=== PATIENT | male | born 1935 | race Caucasian/White ===

== ENCOUNTER 2021-04-05 17:02 | Inpatient (IN) ==
[2021-04-05] MEDS ORDERED: Levalbuterol 1 PUFF INHALER IH PRN (18:29)
[2021-04-05] MEDS: RIOCIGUAT PO SCH (20:44)
[2021-04-05] MEDS: predniSONE 5 MG TABLET PO SCH (20:44)
[2021-04-06 08:25] LABS: Basophils # 0.1 K/mcL (0.0-0.2); Basophils % 0.6 %; Eosinophils % 0.2 %; Hematocrit 32.3 % (37.5-50.1); Hemoglobin 9.8 g/dL (12.9-16.9); Immature Granulocytes % 2.9 % (0-4); Lymphocytes # 1.2 K/mcL (0.6-4.6); Lymphocytes % 7.7 %; Mean Corpuscular HGB Conc 30.3 g/dL (31.6-35.5); Mean Corpuscular Hemoglobin 25.9 pg (28.0-33.3); Mean Corpuscular Volume 85.4 fL (83.0-100.0); Mean Platelet Volume 10.3 fL (9.4-12.4); Monocytes # 1.2 K/mcL (0.0-1.3); Monocytes % 7.7 %; Neutrophils # 12.5 K/mcL (1.6-8.9); Platelet Count 575 K/mcL (140-400); Red Blood Count 3.78 M/mcL (4.19-5.50); Red Cell Distribution Width 15.5 % (11.5-14.5); Segmented Neutrophils % 80.9 %; White Blood Count 15.4 K/mcL (4.3-11.1)
[2021-04-06 08:27] LABS: INR 1.1; Prothrombin Time 12.7 Seconds (9.4-12.1)
[2021-04-06 08:38] LABS: eGFR For African Americans > 60 (> 60); eGFR For Non-African Americans > 60 (> 60)
[2021-04-06] MEDS: Tiotropium 10 INH DOSE IH SCH (09:36)
[2021-04-06] MEDS: Metoprolol XL (24 HR) Succ 25 MG TAB.ER.24H PO SCH (10:03)
[2021-04-06] MEDS: Famotidine 20 MG TABLET PO SCH (10:03)
[2021-04-06] MEDS: Loratadine 10 MG TABLET PO SCH (10:03)
[2021-04-06] MEDS: RIOCIGUAT PO SCH ×3 (10:04→21:04)
[2021-04-06] MEDS: Cholecalciferol (D-3) 1,000 UNIT (25MCG) TABLET PO SCH (10:04)
[2021-04-06] MEDS: predniSONE 5 MG TABLET PO SCH ×3 (10:04→21:04)
[2021-04-06] MEDS: amLODIPine 5 MG TABLET PO SCH (10:04)
[2021-04-07] MEDS: Metoprolol XL (24 HR) Succ 25 MG TAB.ER.24H PO SCH (09:33)
[2021-04-07] MEDS: predniSONE 5 MG TABLET PO SCH ×3 (09:34→19:48)
[2021-04-07] MEDS: Cholecalciferol (D-3) 1,000 UNIT (25MCG) TABLET PO SCH (09:34)
[2021-04-07] MEDS: Famotidine 20 MG TABLET PO SCH (09:34)
[2021-04-07] MEDS: amLODIPine 5 MG TABLET PO SCH (09:35)
[2021-04-07] MEDS: Loratadine 10 MG TABLET PO SCH (09:35)
[2021-04-07] MEDS: RIOCIGUAT PO SCH ×3 (09:35→19:49)
[2021-04-07] MEDS: Tiotropium 10 INH DOSE IH SCH (09:52)
[2021-04-08] MEDS: Famotidine 20 MG TABLET PO SCH (08:40)
[2021-04-08] MEDS: Loratadine 10 MG TABLET PO SCH (08:41)
[2021-04-08] MEDS: Cholecalciferol (D-3) 1,000 UNIT (25MCG) TABLET PO SCH (08:41)
[2021-04-08] MEDS: Metoprolol XL (24 HR) Succ 25 MG TAB.ER.24H PO SCH (08:43)
[2021-04-08] MEDS: predniSONE 5 MG TABLET PO SCH ×3 (08:44→23:03)
[2021-04-08] MEDS: amLODIPine 5 MG TABLET PO SCH (08:44)
[2021-04-08] MEDS: Tiotropium 10 INH DOSE IH SCH (10:51)
[2021-04-08] MEDS: RIOCIGUAT PO SCH ×3 (11:47→23:05)
[2021-04-09] MEDS: Tiotropium 10 INH DOSE IH SCH (09:14)
[2021-04-09] MEDS: Loratadine 10 MG TABLET PO SCH (09:47)
[2021-04-09] MEDS: Famotidine 20 MG TABLET PO SCH (09:48)
[2021-04-09] MEDS: Metoprolol XL (24 HR) Succ 25 MG TAB.ER.24H PO SCH (09:48)
[2021-04-09] MEDS: predniSONE 5 MG TABLET PO SCH ×3 (09:48→21:32)
[2021-04-09] MEDS: Cholecalciferol (D-3) 1,000 UNIT (25MCG) TABLET PO SCH (09:49)
[2021-04-09] MEDS: amLODIPine 5 MG TABLET PO SCH (09:49)
[2021-04-09] MEDS: RIOCIGUAT PO SCH ×3 (09:49→21:30)
[2021-04-10 07:44] LABS: Hemoglobin 8.8 g/dL (12.9-16.9); Mean Corpuscular HGB Conc 30.3 g/dL (31.6-35.5); Mean Corpuscular Hemoglobin 25.9 pg (28.0-33.3); Mean Corpuscular Volume 85.3 fL (83.0-100.0); Mean Platelet Volume 9.7 fL (9.4-12.4); Platelet Count 741 K/mcL (140-400); Red Cell Distribution Width 15.6 % (11.5-14.5); White Blood Count 13.2 K/mcL (4.3-11.1)
[2021-04-10 07:58] LABS: BUN/Creatinine Ratio 26 (6-26); Blood Urea Nitrogen 22 mg/dL (8-23); Calcium 8.9 mg/dL (8.6-10.3); Carbon Dioxide 27 mEq/L (23-29); Chloride 101 mEq/L (98-107); Glucose 94 mg/dL (70-105); Osmolality,Calculated 283 (280-300); Potassium 4.4 mEq/L (3.5-5.1); Sodium 135 mEq/L (136-145); eGFR For African Americans > 60 (> 60); eGFR For Non-African Americans > 60 (> 60)
[2021-04-10] MEDS: amLODIPine 5 MG TABLET PO SCH (09:30)
[2021-04-10] MEDS: Famotidine 20 MG TABLET PO SCH (09:31)
[2021-04-10] MEDS: Cholecalciferol (D-3) 1,000 UNIT (25MCG) TABLET PO SCH (09:31)
[2021-04-10] MEDS: RIOCIGUAT PO SCH ×2 (09:31→09:52)
[2021-04-10] MEDS: Metoprolol XL (24 HR) Succ 25 MG TAB.ER.24H PO SCH (09:31)
[2021-04-10] MEDS: Loratadine 10 MG TABLET PO SCH (09:31)
[2021-04-10] MEDS: predniSONE 5 MG TABLET PO SCH ×3 (09:31→19:57)
[2021-04-10] MEDS: Tiotropium 10 INH DOSE IH SCH (09:33)
[2021-04-10] MEDS: ADEMPAS 1 MG PO SCH ×3 (09:51→19:58)
[2021-04-11] MEDS: Famotidine 20 MG TABLET PO SCH (09:19)
[2021-04-11] MEDS: ADEMPAS 1 MG PO SCH ×3 (09:19→20:12)
[2021-04-11] MEDS: Cholecalciferol (D-3) 1,000 UNIT (25MCG) TABLET PO SCH (09:19)
[2021-04-11] MEDS: predniSONE 5 MG TABLET PO SCH ×3 (09:20→20:12)
[2021-04-11] MEDS: Metoprolol XL (24 HR) Succ 25 MG TAB.ER.24H PO SCH (09:20)
[2021-04-11] MEDS: amLODIPine 5 MG TABLET PO SCH (09:20)
[2021-04-11] MEDS: Loratadine 10 MG TABLET PO SCH (09:20)
[2021-04-11] MEDS: Tiotropium 10 INH DOSE IH SCH (09:52)
[2021-04-12] MEDS: amLODIPine 5 MG TABLET PO SCH (10:03)
[2021-04-12] MEDS: Loratadine 10 MG TABLET PO SCH (10:03)
[2021-04-12] MEDS: Metoprolol XL (24 HR) Succ 25 MG TAB.ER.24H PO SCH (10:03)
[2021-04-12] MEDS: predniSONE 5 MG TABLET PO SCH ×3 (10:03→20:41)
[2021-04-12] MEDS: Cholecalciferol (D-3) 1,000 UNIT (25MCG) TABLET PO SCH (10:03)
[2021-04-12] MEDS: Famotidine 20 MG TABLET PO SCH (10:04)
[2021-04-12] MEDS: ADEMPAS 1 MG PO SCH ×3 (10:07→20:43)
[2021-04-12] MEDS: Tiotropium 10 INH DOSE IH SCH (10:25)
[2021-04-13 06:26] VITALS: BP 122/65
[2021-04-13] MEDS: Tiotropium 10 INH DOSE IH SCH (09:14)
[2021-04-13] MEDS: Famotidine 20 MG TABLET PO SCH (10:55)
[2021-04-13] MEDS: Loratadine 10 MG TABLET PO SCH (10:55)
[2021-04-13] MEDS: amLODIPine 5 MG TABLET PO SCH (10:55)
[2021-04-13] MEDS: Metoprolol XL (24 HR) Succ 25 MG TAB.ER.24H PO SCH (10:55)
[2021-04-13] MEDS: Cholecalciferol (D-3) 1,000 UNIT (25MCG) TABLET PO SCH (10:55)
[2021-04-13] MEDS: predniSONE 5 MG TABLET PO SCH (10:55)
[2021-04-13] MEDS: ADEMPAS 1 MG PO SCH (10:58)
== END 2021-04-13 13:35 | disposition home health service (06) | DRG 945 ==
LOC: INPPIK 19:16
PROVIDERS: ADMIT Family Medicine; ATTEND Family Medicine